=== PATIENT | female | born 1955 | race Caucasian/White ===

== ENCOUNTER → 2018-01-22 | Outpatient (CLI) | payer BC ==
--- NOTE | 2018-01-22 14:05 | BD ---
EXAMINATION TYPE: Axial Bone Density DATE OF EXAM: 01/22/2018 COMPARISON: 10.26.2015 CLINICAL HISTORY: 62 YR OLD FEMALE.....ICD 10 CODE: Z78.0 POST MENOPAUSAL W/O HRT Height: 60 Weight: 215 FRAX RISK QUESTIONS: History of Fracture in Adulthood: YES Secondary Osteoporosis: YES 3. Menopause before 45: YES AT AGE 43 RISK FACTORS HISTORY OF: RT FOOT FX...>50 YRS OLD Family History of Osteoporosis: UNKNOWN Active: YES Diet low in dairy products/other sources of calcium: NO Postmenopausal woman: AT 43 YRS OLD MEDICATIONS: Osteoporosis Medications: RALOXIFENE How Long: I YR Additional Medications: BLACK COHOSH, BP MEDS, XANAX, WELLBUTRIN, CALCIUM AND VIT D, VITAMINS, MAGNES IUM, GABAPENTIN, NORCO, CELEBREX Additional History: NOTHING MORE TO NOTE EXAM MEASUREMENTS: Bone mineral densitometry was performed using the [employer] System. Bone mineral density as measured about the Lumbar spine is: ----- L1-L4(G/cm2): 1.184 T Score Values are as follows: ----- L1: 0.3 ----- L2: -0.9 ----- L3: -0.1 ----- L4: 0.4 ----- L1-L4: 0.0 Bone mineral density has: Increased 8.2% since study of: 10.26.2015 Bone mineral density about the R hip (g/cm2): 0.876 Bone mineral density about the L hip (g/cm2): 0.882 T Score values are as follows: -----R Neck: -1.1 -----L Neck: -1.8 -----R Total: -1.0 -----L Total: -1.0 Bone mineral density has: Increased 1.2% since study of: 10.26.2015 FRAX%S: THERE IS A 9.3% CHANCE OF A MAJOR OSTEOPOROTIC FX AND A 1.7% FOR HIP FX.....PROBABILITY OF FX IN 10 YRS TIME. IMPRESSION: Osteopenia (T Score between -2.5 and -1). There is slightly increased risk of fracture and the patient may be considered for treatment. Re-Screen 2-5 years. NOTE: T-SCORE=SD OF THE YOUNG ADULT MEAN.
== END | disposition home or self-care (01) ==
LOC: RADBDWWP 07:06
PROVIDERS: ATTEND Family Medicine
DX: M85.89 Other specified disorders of bone density and structure, multiple sites (principal); Z78.0 Asymptomatic menopausal state
CPT/HCPCS: 77080

== ENCOUNTER → 2018-08-13 | Outpatient (CLI) | payer BC ==
[~2018-08-13] MED LIST: REGADENOSON 0.4 MG/5 ML SYRINGE IV ONE
--- NOTE | 2018-08-13 11:43 | NM ---
EXAMINATION TYPE: NM stress lexiscan cardiolite DATE OF EXAM: 08/13/2018 COMPARISON: NONE HISTORY: Precordial chest pain and abnormal EKG TECHNIQUE: After the intravenous administration of 9.9 mCi Tc 99m Sestamibi - Cardiolite resting SPE CT images acquired 45 minutes post injection. The patient received 0.4mg Lexiscan, 26.1 mCi Tc 99m Sestamibi - Stress images obtained [address] injection FINDINGS: Review of stress and rest SPECT images demonstrates no distinct perfusion abnormality. Gated analysi s shows normal wall motion with an estimated left ventricular ejection fraction of 65 %. IMPRESSION: No scintigraphic evidence for reversible ischemia.
--- NOTE | 2018-08-14 10:16 | EST ---
EXERCISE STRESS AGE: 62 SEX: F HT: 5'2" WT: 230 PROTOCOL: Lexiscan Cardiolite Stress Test HEART RATE REST: 62 BLOOD PRESSURE REST: 135/75 MAXIMUM HEART RATE ACHIEVED: 107 MAXIMUM BLOOD PRESSURE: 139/80 INDICATIONS: Chest pain CLINICAL INFORMATION: Nuclear portion will be reported separately. Baseline heart rate 62 beats per minute. Baseline blood pressure 135/75 mmHg. Baseline 12-lead ECG shows sinus rhythm with normal ST segments. Patient received Lexiscan infusion per protocol. No chest pain and no significant change in heart rate or blood pressure. Nuclear portion will be reported separately. No ECG evidence for ischemia. MMODL / IJN: [id number] /
== END ==
LOC: RADNMMAIN 08:21
PROVIDERS: ATTEND Family Medicine
DX: R07.89 Other chest pain (principal)
CPT/HCPCS: 93017; 78452; A9500; J2785